=== PATIENT | male | born 1935 | race Caucasian/White ===

== ENCOUNTER 2016-03-14 08:40 | Outpatient (CLI) | payer MEDICARE | END 2016-03-14 08:41 | disposition home or self-care (01) | DX: D70.9 Neutropenia, unspecified (principal); R80.9 Proteinuria, unspecified ==

== ENCOUNTER 2016-04-03 15:22 | Outpatient (CLI) | payer MEDICARE | END 2016-04-03 15:23 | disposition home or self-care (01) | DX: E83.30 Disorder of phosphorus metabolism, unspecified (principal); N25.81 Secondary hyperparathyroidism of renal origin ==

== ENCOUNTER 2016-04-09 15:56 | Outpatient (CLI) | payer MEDICARE | END 2016-04-09 15:57 | disposition home or self-care (01) | DX: N17.9 Acute kidney failure, unspecified (principal) ==

== ENCOUNTER 2016-04-26 15:26 | Outpatient (CLI) | payer MEDICARE | END 2016-04-26 15:27 | disposition home or self-care (01) | DX: E11.29 Type 2 diabetes mellitus with other diabetic kidney complication (principal); I50.9 Heart failure, unspecified; N28.9 Disorder of kidney and ureter, unspecified ==

== ENCOUNTER 2016-06-28 19:23 | Outpatient (CLI) | payer MEDICARE, OTHER | END 2016-06-28 19:24 | disposition home or self-care (01) | DX: R07.89 Other chest pain (principal); I50.9 Heart failure, unspecified; N28.9 Disorder of kidney and ureter, unspecified; I10 Essential (primary) hypertension; E11.29 Type 2 diabetes mellitus with other diabetic kidney complication ==

== ENCOUNTER 2016-09-04 07:32 | Outpatient (CLI) | payer MEDICARE ==
[2016-09-04 14:00] LABS: BASOPHILS % (AUTO) 0.4 %; EOSINOPHILS # (AUTO) 0.2 10^3/uL (0.0-0.7); EOSINOPHILS % (AUTO) 3.1 %; HCT - HEMATOCRIT 39.2 % (42.0-52.0); HGB - HEMOGLOBIN 12.7 g/dL (14.0-18.0); LYMPHOCYTES # (AUTO) 0.6 10^3/uL (1.5-3.5); LYMPHOCYTES % (AUTO) 8.9 %; MEAN CORPUSCULAR HEMOGLOBIN 30.3 pg (27.0-31.0); MEAN CORPUSCULAR HGB CONC 32.4 g/dL (32.0-36.0); MEAN CORPUSCULAR VOLUME 93.6 fL (80.0-94.0); MEAN PLATELET VOLUME 7.8 fL (7.4-11.4); MONOCYTES # (AUTO) 0.5 10^3/uL (0.0-1.0); MONOCYTES % (AUTO) 7.4 %; NEUTROPHILS # (AUTO) 5.2 10^3/uL (1.5-6.6); NEUTROPHILS % (AUTO) 80.2 %; NUCLEATED RED BLOOD CELLS AUTO 0.2 /100WBC; RED BLOOD COUNT 4.19 10^6/uL (4.70-6.10); RED CELL DISTRIBUTION WIDTH 15.9 % (12.0-15.0); UNCORRECTED WHITE BLOOD COUNT 6.5 x10^3/uL; WHITE BLOOD COUNT 6.5 x10^3/uL (4.8-10.8)
[2016-09-04 14:19] LABS: HEMOGLOBIN A1C 0.77 g/dL
[2016-09-04 14:30] LABS: ALBUMIN/GLOBULIN RATIO 1.3 (1.0-2.2); BILIRUBIN,TOTAL 0.8 mg/dL (0.2-1.0); CALCIUM 8.8 mg/dL (8.5-10.3); CREATININE 2.1 mg/dL (0.6-1.2); POTASSIUM 4.3 mmol/L (3.5-5.0)
== END 2016-09-04 07:33 | disposition home or self-care (01) ==
LOC: LAB.WCP 07:32
PROVIDERS: ATTEND Family Medicine
DX: I25.10 Atherosclerotic heart disease of native coronary artery without angina pectoris (principal); I50.9 Heart failure, unspecified; E11.29 Type 2 diabetes mellitus with other diabetic kidney complication; N18.6 End stage renal disease
CPT/HCPCS: 36415; 80053; 83036; 85025

== ENCOUNTER 2016-11-07 13:10 | Outpatient (CLI) | payer MEDICARE ==
[2016-11-07 13:26] LABS: HEMOGLOBIN A1C 0.95 g/dL
[2016-11-07 13:28] LABS: CREATININE 2.2 mg/dL (0.6-1.2)
[2016-11-07 13:31] LABS: POTASSIUM 3.8 mmol/L (3.5-5.0)
[2016-11-07 13:40] LABS: CALCIUM 8.8 mg/dL (8.5-10.3)
== END 2016-11-07 13:11 | disposition home or self-care (01) ==
LOC: LAB.WCP 13:10
PROVIDERS: ATTEND Family Medicine
DX: I25.10 Atherosclerotic heart disease of native coronary artery without angina pectoris (principal); I50.9 Heart failure, unspecified; E11.29 Type 2 diabetes mellitus with other diabetic kidney complication; N18.6 End stage renal disease; I12.9 Hypertensive chronic kidney disease with stage 1 through stage 4 chronic kidney disease, or unspecified chronic kidney disease
CPT/HCPCS: 36415; 80048; 83036

== ENCOUNTER 2017-02-18 20:37 | Outpatient (CLI) | payer MEDICARE | END 2017-02-18 20:38 | disposition EMS.NT | LOC: EMS 20:37 | PROVIDERS: ATTEND Surgery | DX: R41.0 Disorientation, unspecified (principal); R73.09 Other abnormal glucose ==

== ENCOUNTER 2017-03-15 10:24 | Outpatient (CLI) | payer MEDICARE | END 2017-03-15 10:25 | disposition home or self-care (01) | LOC: LAB.WCP 10:24 | PROVIDERS: ATTEND Physician Assistant Medical | DX: R32 Unspecified urinary incontinence (principal) | CPT/HCPCS: 87086 ==

== ENCOUNTER 2017-03-26 04:35 | Outpatient (CLI) | payer MEDICARE | END 2017-03-26 04:36 | disposition short-term general hospital (02) | LOC: EMS 04:35 | PROVIDERS: ATTEND Surgery | DX: R55 Syncope and collapse (principal); R53.1 Weakness; R50.9 Fever, unspecified | CPT/HCPCS: A0425; A0427 ==

== ENCOUNTER 2017-04-06 10:10 | Outpatient (CLI) | payer MEDICARE | END 2017-04-06 10:11 | disposition short-term general hospital (02) | LOC: EMS 10:10 | PROVIDERS: ATTEND Surgery | DX: R40.1 Stupor (principal) | CPT/HCPCS: A0425; A0427 ==

== ENCOUNTER 2017-05-26 12:57 | Outpatient (CLI) | payer MEDICARE | END 2017-05-26 12:58 | disposition short-term general hospital (02) | LOC: EMS 12:57 | PROVIDERS: ATTEND Surgery | DX: S01.01XA Laceration without foreign body of scalp, initial encounter (principal); R41.82 Altered mental status, unspecified; W19.XXXA Unspecified fall, initial encounter; Y92.009 Unspecified place in unspecified non-institutional (private) residence as the place of occurrence of the external cause | CPT/HCPCS: A0425; A0427 ==

== ENCOUNTER 2017-08-13 08:00 | Outpatient (CLI) | payer MEDICARE ==
[2017-08-13 12:39] LABS: BASOPHILS % (AUTO) 0.3 %; EOSINOPHILS # (AUTO) 0.3 10^3/uL (0.0-0.7); EOSINOPHILS % (AUTO) 5.5 %; HGB - HEMOGLOBIN 11.4 g/dL (14.0-18.0); LYMPHOCYTES # (AUTO) 0.6 10^3/uL (1.5-3.5); LYMPHOCYTES % (AUTO) 9.7 %; MEAN CORPUSCULAR HEMOGLOBIN 32.5 pg (27.0-31.0); MEAN CORPUSCULAR HGB CONC 33.3 g/dL (32.0-36.0); MEAN CORPUSCULAR VOLUME 97.7 fL (80.0-94.0); MEAN PLATELET VOLUME 7.1 fL (7.4-11.4); MONOCYTES # (AUTO) 0.4 10^3/uL (0.0-1.0); MONOCYTES % (AUTO) 6.8 %; NEUTROPHILS # (AUTO) 4.9 10^3/uL (1.5-6.6); NEUTROPHILS % (AUTO) 77.7 %; PLT - PLATELET COUNT 206 10^3/uL (130-450); RED CELL DISTRIBUTION WIDTH 15.3 % (12.0-15.0); WHITE BLOOD COUNT 6.3 x10^3/uL (4.8-10.8)
[2017-08-13 12:50] LABS: ALBUMIN 3.7 g/dL (3.2-5.5); ALBUMIN/GLOBULIN RATIO 1.1 (1.0-2.2); BILIRUBIN,TOTAL 0.7 mg/dL (0.2-1.0); CALCIUM 8.4 mg/dL (8.5-10.3); CREATININE 2.6 mg/dL (0.6-1.2)
[2017-08-13 12:53] LABS: HB2 TOTAL 12.6 g/dL; HEMOGLOBIN A1C 0.89 g/dL; HEMOGLOBIN A1C % 8.6 % (4.6-6.2)
== END 2017-08-13 08:01 | disposition home or self-care (01) ==
LOC: LAB.WCP 08:00
PROVIDERS: ATTEND Family Medicine
DX: I13.2 Hypertensive heart and chronic kidney disease with heart failure and with stage 5 chronic kidney disease, or end stage renal disease (principal); E11.22 Type 2 diabetes mellitus with diabetic chronic kidney disease; N18.6 End stage renal disease; I50.9 Heart failure, unspecified; I25.10 Atherosclerotic heart disease of native coronary artery without angina pectoris
CPT/HCPCS: 36415; 80053; 83036; 85025

== ENCOUNTER 2017-09-24 10:41 | Outpatient (CLI) | payer MEDICARE ==
[2017-09-24 20:06] LABS: CALCIUM 8.9 mg/dL (8.5-10.3); CREATININE 2.6 mg/dL (0.6-1.2)
== END 2017-09-24 10:42 | disposition home or self-care (01) ==
LOC: LAB.WCP 10:41
PROVIDERS: ATTEND Family Medicine
DX: I95.9 Hypotension, unspecified (principal); I25.10 Atherosclerotic heart disease of native coronary artery without angina pectoris; I50.9 Heart failure, unspecified; N18.6 End stage renal disease
CPT/HCPCS: 36415; 80048

== ENCOUNTER 2017-09-25 10:30 | Outpatient (CLI) | payer MEDICARE ==
--- NOTE | 2017-09-25 17:35 | CONSULTATION NOTE ---
Palliative Care Consultation - Referral Referring Provider: Dr. Landon Jessica Time of Visit: [id number] Referral setting: Home (It is a taxing considerable effort for the patient to leave the home secondary to lower extremity weakness and fatigue and breathlessness) Referral Reason: CHF/Goals of Care - Information Sources Records reviewed: Previous records reviewed History/Review of Systems obtained from: Patient, Family (met with Marleni and daughter Sushma) Exam limitations: No limitations - History of Present Illness Brief History of Present Illness: This is an 81-year-old gentleman with known severe cardiomyopathy, CHF with systolic dysfunction,pulmonary hypertension, cor pulmonale, 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 Patient had 2 stents placed for CAD in 2016. His last known ejection fraction [facility] in February 2017 was 37%. Patient has been declining over the last several months, with increasing falls, hypoglycemic episodes, and was sent to [facility] on 05/27 for subdural hematoma. At that point in time he was discontinued off of his Plavix. Shortly after on 06/01 2 06/03 he was hospitalized at [facility] for healthcare associated pneumonia. Patient had been independently managing his medications and blood sugars up to a few weeks ago when now and daughter set up medications. He often refuses or skips medications He is not on long-acting insulin, is managing his own blood sugars, though it is unclear if he is doing this correctly given his episodes of confusion. He tracks on calendar BS but not amount he is taking. He does have a fluctuating status, he has decreased his intake he has poor appetite he had been able to ambulate short distances even out to the mailbox a few weeks ago, this is become more difficult related to activity intolerance, LE weakness, and increasing dyspnea. Over the last week he has been mostly in the chair, needing increased assistance and cueing during times of confusion. He is now having periods of incontinence this is related to urgency, but also unawareness at times. This culminated 09/19 with home visit by Dr. Jessica, with medication adjustments of carvedilol/torsemide as patient refusing hospitalization and could not get out secondary to weakness. Patient has diuresed 4-5 pounds, with improvement of LE edema and breathlessness but 09/24 BUN up to 81; cret 2.6; gfr 24; glucose 289. Last night patient needing assistance with bed mobility, stressed with patients ongoing decline, he often will not call/ask for help. Patient appears is quite frail, a somewhat lethargic when first awakening, but did participate in the interview and was able to engage and though STM issues was not confused. He is quite tearful, when asked what he thinks is going on, he feels like he is dying. He just wants to make it to 2 weeks to his birthday. He denies respiratory distress, but baseline respiratory rate is about 22, with ambulation assistance of respiratory effort is quite noticeable with a respiratory rate about 28. He does not desaturate, but he does get quite tachy at about 110.He reports he has no appetite, denies any nausea or GERD symptoms. Patient does not present with awareness regarding episodic confusion, does report he has poor balance, and some tremors. Medical/Surgical History - Past Medical History Cardiovascular: reports: Congestive heart failure, Hypertension, High cholesterol, Coronary artery disease, Peripheral Vascular Disease, Deep vein thrombosis (left lower 03/2017), Arrhythmia (av block), Valve disorder Respiratory: reports: Shortness of breath, Sleep apnea (not on CPAP) Neuro: Tremors Neuro: reports: Other (subdural hematoma 05/27/2017) Endocrine/Autoimmune: reports: Type 2 diabetes : reports: Benign prostate hypertrophy, Renal insuffiency (Stage IV), Other ( gout) HEENT: reports: Chronic vision loss, Chronic hearing loss Psych: reports: Depression Musculoskeletal: reports: Chronic back pain Derm: reports: Other (recent severe skin tear right arm) MRSA Hx?: No - Past Surgical History Cardiovascular: reports: Coronary stent (x2), Pacemaker (2 years ago; pacemaker dependent), Fempop bypass, Other (TAVR) - Substance History Use: Uses substance without health or social issues: Tobacco (hx) Social History - Living Situation Living arrangement: At home Living Situation: With spouse/s.o. Support System: Daughter Sushma and her have been very involved in care, she lives 5 minutes away. Son in [place], and daughter in [facility]. and patient for 60 years, [place]. Family History - Family History Family History: Mother: , Hypertension, Father: , CAD, Hypertension Medications/Allergies - Medications Home Medications: Ambulatory Orders Medication Instructions Recorded Confirmed Allopurinol 100 mg PO DAILY 09/26/17 09/26/17 Aspirin [Adult Aspirin] 81 mg PO DAILY 09/26/17 09/26/17 Carvedilol 6.25 mg PO BID 09/26/17 09/26/17 Insulin Lispro [Humalog Kwikpen 8 - 12 units SUBQ TID 09/26/17 09/26/17 U-100] Isosorbide Mononitrate [Isosorbide 60 mg PO DAILY 09/26/17 09/26/17 Mononitrate ER] Nitroglycerin [Nitrostat] 0.4 mg SL Q5MIN PRN 09/26/17 09/26/17 Potassium Chloride 10 meq PO DAILY 09/26/17 09/26/17 Tamsulosin [Flomax] 0.4 mg PO DAILY 09/26/17 09/26/17 Torsemide 20 mg PO . BID QOD 09/26/17 09/26/17 - Allergies Allergies/Adverse Reactions: Allergies Allergy/AdvReac Type Severity Reaction Status Date / Time No Known Drug Allergies Allergy Verified 09/26/17 05:56 Review of Systems - Constitutional Constitutional: reports: Fatigue, Weakness, Poor appetite, Weight loss (166.8; 175 8/3 md visit; 200 about 8 months ago) - Eyes Eyes: reports: Vision loss, Corrective lenses - Ears, Nose & Throat Ears, Nose & Throat: reports: Hearing loss, Hearing aids, Dry mouth - Cardiovascular Cardiovascular: reports: Edema, Exertional dyspnea, Decr. exercise tolerance. denies: Chest pain - Respiratory Respiratory: reports: SOB at rest, SOB with exertion - Gastrointestinal Gastrointestinal: reports: Poor appetite, Early satiety. denies: Constipation, Nausea, Reflux/heartburn - Genitourinary Genitourinary: reports: Frequency, Urgency, Incontinence, Nocturia, Sexual dysfunction - Musculoskeletal Musculoskeletal: reports: Back pain, Stiffness, Limited range of motion, Muscle weakness, Assistive devices (uses 4WW) - Integumentary Integumentary: reports: Dryness, Other (healing skin tear right arm) - Neurological Neurological: reports: General weakness, Dizziness, Memory problems, Incoordination - Psychiatric Psychiatric: reports: Depression, Anxiety - Endocrine Endocrine: reports: Diabetes type 2 (poorly controlled; had hypoglycemic episodes with falls; using only humalog; last Aic 8.6;patient has been doing independently concern for accuracy) - Hematologic/Lymphatic Hematologic/Lymphatic: reports: Anemia (08/13 hgb 11.4), Blood clots (DVT 03/31 LLE residual swelling), Recurrent infections (hospitalized for HAP 06/01-06/03) - All Other Systems All Other Systems: reports: Reviewed and negative Physical Exam - Vital Signs Temperature: 98.2 C Pulse Rate: 64 Respiratory Rate: 22 O2 Saturation: 97 (ra @ rest) Blood Pressure: 132/54 - Physical Exam General Appearance: positive: No acute distress, Other (fatigued) Eyes Bilateral: positive: Normal inspection ENT: positive: No signs of dehydration Neck: positive: No JVD, Trachea midline Cardiovascular: positive: Regular rate & rhythm Respiratory: positive: Rales (crackles right lower lobe). negative: Wheezes Abdomen: positive: Non-tender, Soft, Nml bowel sounds Skin: positive: Pallor, Dryness, Bruising (upper extremities), Wound (right elbow/arm laceration scabbed but no s/s infection) Extremities: positive: Pedal edema (1+ up to mid calf; left greater than right; no taut; family/patient report "skinny" for him) Neurologic/Psychiatric: positive: Oriented x3, Weakness, Other (tearful through visit) Palliative Care - POLST Patient has POLST: Yes POLST Status: DNR, Comfort Measures (updated form) Pain: Pain unchanged, Location (mild back pain) Tiredness/Fatigue: Severe (7-10) Drowsiness/Sedation: Moderate (4-6) Nausea: None Depression: Mild (1-3) Anxiety: Moderate (4-6) Anorexia: Moderate (4-6) Sleep: Variable sleep pattern (up frequently to void at night) Constipation: No Feelings of wellbeing/Perceived Quality of Life: Poor, Worsening Performance Status: Patient has a had a slow functional decline over this last year, most acutely over the last few weeks. This is been fluctuating in status sometimes he is able to ambulate short distances to the bathroom into the house. Other times he is quite weak and needs contact assist and/or rolled on his walker. is assisting him with most ADLs, patient can feed himself, but does spend most of the time sleeping in the recliner. 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 Since his pacemaker placement he has had multiple complications and surgeries, and since his fall and May with a subdural hematoma, he has continued to have less and less energy, fluctuating days or he is unable to participate in others a sleeping. He has been reportedly not communicating about how things are going. The perception is he has quite a bit of pride, the herself does not like the word hospice, she does not want to lose some". Much time was spent in discussing the philosophy of hospice which is living until he dies. Neither one perceive that he would be alive 6 months from now. We did discuss given the fluctuating status and their ongoing concern the role of hospice would play. Met with patient, patient does perceive he is doing poorly and dying, he just wants to make it 2 weeks to his birthday. We did discussed what is most important to him now which is spending time with family. He does understand he is seriously ill though cannot really reflect back to me exactly what is going on. We discussed his heart and kidneys and the difficult balance to try and work this out, but he recognizes things have gotten harder over the last few weeks to months. Patient quite tearful through conversation, we discussed goals of care to spending time with family, not going to the hospital, patient denies he is fearful of dying. He is unable to expand on his feelings around this, but was willing to acknowledge this is a very tender time. We did discuss in the context of support for both he and his , to make it easier and everyone with a hoping for the best for extended period of time but also being prepared and have someone that they might contact if they are in distress. We did update the [facility], patient signed and family all in agreement of goals. Results - Lab Results Lab results reviewed: Yes Lab and Imaging Results: Patient had labs done yesterday his BUN was 81; creatinine 2.6; potassium 4.2; sodium 138; and glucose 289. His A1c on 08 13 was 8.6% which averages to 200. Impression and Recommendations - Palliative Care Impression: This is an 81-year-old gentleman who presents with severe ischemic cardiomyopathy, known congestive heart failure with diastolic dysfunction, mitral regurgitation status post TVA R, pulmonary hypertension, type 2 diabetes , hypertension, peripheral vascular disease, chronic kidney disease stage IV. In the context is at the his multiple comorbidities and his most recent fall in May, he has had ongoing decline both functional and cognitive. Patient's goals are not to be rehospitalized, focus on comfort, given his fragile status will go ahead and transition him to hospice for better support. Recommendations/Counseling Done: 1. Diabetes type 2. Patient is on Humalog sliding scale with meals, given patient's confusion concern about patient's compliance and appropriate measurement. to assist in record for the next few days to get a sense of his blood sugar management. does not had to do injection, does assist patient, patient though direct sliding scale. 2. Congestive heart failure. Patiently recent med medication changes. Had consulted with PCP prior to going out, had agreed the patient was "dry" to change his torsemide based on his labs to every other day. Patient's weight down 4-5 pounds as best I can tell, decreased peripheral edema, Does have crackles in his right lower lobe. Daughter and have set [facility] to oversee his medications, concern about medication adherence. The sometimes patient does choose not to take medications. They are starting to log blood pressures, O2 sats, and medication compliance. 3. Generalized muscle weakness. This does appear to be fluctuating in status, at times he is quite immobilized and others able to ambulate with contact assist and supervision. This is quite a decline over the last several weeks. Will have hospice evaluate equipment needs, currently have a walker, but may benefit from a hospital bed for ease of transfers and management of his incontinence. 4. Urinary incontinence. Patient is wearing depends, does have some urgency with diuretic use, denies dysuria. Has been difficult has has little insight about his extent of incontinence, often soaks the bed. Does have urinal for nighttime use, but appears confusion worse in evenings/nights, tries to listen for patient to assist. She is hard of hearing. Counseling and suggestion of using baby monitor to be able to hear him, she is hard of hearing and it is difficult for her to sleep with hearing aids in. 5. Advanced care planning. Counseling provided for and daughter regarding hospice services, later support, given patient's decline and goals of care would seem like a good fit. After education does agree and allows me to talk to patient about this. Counseling for patient's goals of care, his biggest goal is to make it to his birthday libertarian in 2 weeks, is aware of his ongoing decline. He is quite tearful through the conversation, [facility] was updated to reflect goals of care. Contact to the hospice medical record transcriber Dr. De La Cruz, they would like to have his attending, they will accept him for admission. Time Spent: 75 minutes with greater than 50% of this done in counseling regarding goals of care, management of patient's symptoms, anticipatory guidance and coordination of care with PCP and hospice team
== END 2017-09-25 10:31 | disposition home or self-care (01) ==
LOC: PC 10:30
PROVIDERS: ATTEND Nurse Practitioner Adult Health
DX: Z51.5 Encounter for palliative care (principal); E11.22 Type 2 diabetes mellitus with diabetic chronic kidney disease; I13.0 Hypertensive heart and chronic kidney disease with heart failure and stage 1 through stage 4 chronic kidney disease, or unspecified chronic kidney disease; N18.4 Chronic kidney disease, stage 4 (severe); I50.20 Unspecified systolic (congestive) heart failure; Z79.4 Long term (current) use of insulin; M62.81 Muscle weakness (generalized); R32 Unspecified urinary incontinence; Z79.82 Long term (current) use of aspirin; Z95.0 Presence of cardiac pacemaker; Z95.5 Presence of coronary angioplasty implant and graft; R06.00 Dyspnea, unspecified; Z87.891 Personal history of nicotine dependence; F32.9 Major depressive disorder, single episode, unspecified; F41.9 Anxiety disorder, unspecified; Z66 Do not resuscitate
CPT/HCPCS: 99349

== ENCOUNTER 2017-09-26 08:15 | Outpatient (CLI) | payer MEDICARE ==
--- NOTE | 2017-09-26 14:31 | CONSULTATION NOTE ---
Palliative Care Follow Up - Referral Referring Provider: Dr. Landon Jessica Time of Visit: [id number] Referral setting: Home (It is a taxing considerable effort for the patient leave the home secondary confusion and lower extremity weakness.) Referral Reason: Confusion/CHF/CKD - Information Sources Records reviewed: Previous records reviewed History/Review of Systems obtained from: Patient, Family (Marleni and daugther Sushma) Exam limitations: Clinical condition (patient with STM issues; recognizes [employer] but does not recall issues of last night and this AM; able to engage in conversation) - History of Present Illness Update Brief HPI Update: Please see HPI from visit yesterday, for extended history. I did get a call from the daughter somewhat panicked this a.m., via the hospice on-call nurse. Reports patient is difficult to arouse, has had a difficult last 12-15 hrs. He was very exhausted after our visit, slept through most of the afternoon, they did awaken him and make him eat. His blood sugar at that point in time was 397, they are quite fearful of hypoglycemic episodes so gave him 4 units Humulog. Did ask why was on the phone to have them check it again, it was 381 that gave 4 units as instructed. She is also concerned Riri as she had noted that he was having long periods of apnea prior to being awakened, that he had Pantene, and though it been significantly incontinent and not hit the urinal but with a little bit a urine. Reports he is quite shaky and not able to walk last night and was mildly confused. I find him a little bit more clear, he does have no recall of last night or this morning, though does seem to be able to participate in the conversation. He denies significant confusion, though certainly has poor recall. His blood sugar was 521, during our visit he had to get up urgently twice, given his elevated blood sugars, this is not his norm, will go ahead and get a urine specimen for suspected UTI. Had spoken with hospice regarding more urgent visit , family is feeling quite overwhelmed, when talking on the phone did not want to call 911 though patient was somewhat distressed. Does appear they are going to need some support and education to be able to manage his fluctuating status. Social History - Living Situation Living arrangement: At home Living Situation: With spouse/s.o. Support System: Daughter Sushma and JED Kraig came over last night because patient so weak and unable to get to bed; Both are present this morning patient had been incontinent and confused, difficult to arouse this am Medications/Allergies - Medications Home Medications: Ambulatory Orders Medication Instructions Recorded Confirmed Allopurinol 100 mg PO DAILY 09/26/17 09/26/17 Aspirin [Adult Aspirin] 81 mg PO DAILY 09/26/17 09/26/17 Carvedilol 6.25 mg PO BID 09/26/17 09/26/17 Insulin Lispro [Humalog Kwikpen 8 - 12 units SUBQ TID 09/26/17 09/26/17 U-100] Isosorbide Mononitrate [Isosorbide 60 mg PO DAILY 09/26/17 09/26/17 Mononitrate ER] Nitroglycerin [Nitrostat] 0.4 mg SL Q5MIN PRN 09/26/17 09/26/17 Potassium Chloride 10 meq PO DAILY 09/26/17 09/26/17 Tamsulosin [Flomax] 0.4 mg PO DAILY 09/26/17 09/26/17 Torsemide 20 mg PO . BID QOD 09/26/17 09/26/17 - Allergies Allergies/Adverse Reactions: Allergies Allergy/AdvReac Type Severity Reaction Status Date / Time No Known Drug Allergies Allergy Verified 09/26/17 05:56 Review of Systems - Constitutional Constitutional: reports: Weakness - Eyes Eyes: reports: Vision loss - Ears, Nose & Throat Ears, Nose & Throat: reports: Hearing loss, Hearing aids, Dry mouth - Cardiovascular Cardiovascular: reports: Exertional dyspnea, Decr. exercise tolerance. denies: Chest pain - Respiratory Respiratory: reports: SOB with exertion - Gastrointestinal Gastrointestinal: reports: Poor appetite, Early satiety. denies: Constipation ( bowels moved during visit) - Genitourinary Genitourinary: reports: Frequency, Urgency, Incontinence - Musculoskeletal Musculoskeletal: reports: Back pain, Stiffness, Limited range of motion, Muscle weakness, Assistive devices (using cane) - Integumentary Integumentary: reports: Dryness, Other (right elbow wound) - Neurological Neurological: reports: General weakness, Memory problems - Endocrine Endocrine: reports: Diabetes type 2 (patient's blood sugar last night 397 at bed time; given 4 units and only ate a few bites; This am when asked to check 381-gave 4 units with breakfast and ate fairly well; now at visit 521 given 4 units) - Hematologic/Lymphatic Hematologic/Lymphatic: reports: Anemia, Recurrent infections (suspect UTI) - All Other Systems All Other Systems: reports: Reviewed and negative Physical Exam - Vital Signs Temperature: 96.7 C Pulse Rate: 60 Respiratory Rate: 22 (with ambulation 26) O2 Saturation: 97 (ra @ rest) Blood Pressure: 122/52 - Physical Exam General Appearance: positive: Mild distress Eyes Bilateral: positive: Normal inspection ENT: positive: No signs of dehydration Neck: positive: No JVD, Trachea midline Cardiovascular: positive: Regular rate & rhythm Respiratory: positive: Diminished in bases. negative: Wheezes, Rales, Rhonchi Abdomen: positive: Non-tender, Soft, Nml bowel sounds Skin: positive: Pallor, Dryness, Bruising, Wound (right skin wound without s/s infection) Extremities: positive: Pedal edema (trace to 1+ pedal edema up to mid calf) Neurologic/Psychiatric: positive: Disoriented to time, Weakness, Other (slower to respond; appears easily confused; no recall of events relayed) Palliative Care - POLST Patient has POLST: Yes POLST Status: DNR, Comfort Measures Pain: Pain unchanged Tiredness/Fatigue: Moderate (4-6) Drowsiness/Sedation: Moderate (4-6), Comment (slept most of afternoon after [employer]IC[employer] visit and short visit with relatives yesterday) Nausea: None Depression: Mild (1-3) Anxiety: Mild (1-3) Dyspnea: Moderate (4-6) Anorexia: Moderate (4-6) Sleep: Other (slept well through last night) Constipation: No Performance Status: Patient was very weak last night, needed son-in-law to come system from recliner to bed, used rolling walker. Again this a.m. to get up. After taking insulin and having breakfast, he is feeling a little bit stronger. His gait is quite shuffled and using cane. He does have difficulty getting from sitting to standing, is quite breathless with activity. Did discuss where to put a hospital bed, decision was to make it in the bedroom, they can use a wheelchair to bring him out to his recliner. - Palliative Care Discussion: Family had not wanted to call 911 despite urgent concerns this a.m., reviewed hospice be able to provide support and direction as well. Reviewed goals are still not to consider hospitalization. Hospice is scheduled come out later today, report given. Equipment has been ordered of oxygen, hospital bed, wheelchair, commode, and shower chair. Discussion how best to put this together to support patient as far as comfort but not to overwhelm him with too may changes. Reviewed room set up and recommendations. Results - Lab Results Lab results reviewed: Yes Lab and Imaging Results: Addendum: Urine collected at visit. UA shows cloudy, with moderate esterase, high protein 700, large occult blood, indicated for microscopic and urine culture, with greater than 25 WBCs and 6-10 RBCs. Impression and Recommendations - Palliative Care Impression: This is an 81-year-old gentleman who has severe ischemic cardiomyopathy, known congestive heart failure with diastolic dysfunction, pulmonary hypertension, and now with hyperglycemia with his type 2 diabetes. Given patient's underlying symptoms of confusion, weakness, and elevated blood sugars and suspect for infection. Palliative care to handed off to hospice admit later today. Recommendations/Counseling Done: 1. Diabetes, poorly controlled. They do have a sliding scale, will continue to monitor and follow, may need to be readjusted given most likely has a UTI. Daughter and to track blood sugars to assist with proper management. Did talk to psychiatric tech, as she reports with his poor kidney function, the short acting Humalog is probably the most safe thing also with a history of hypoglycemia. If patient does have UTI, most likely underlying cause of elevated blood sugars. Will continue to monitor, as Lantus may put him at high risk for hypoglycemic episode but would probably even out Bloodsugars if needed 2.Confusion. Patient is somewhat improved on visit, but history reveals patient with severe confusion and lethargy. UA was taken, it is cloudy in nature suspect UTI given patient's symptoms. Addendum patient's urine is positive, given his symptomology will go ahead and treat. Renally dosed Bactrim at 400/800 mg 1 tab twice daily 5 days. Patient has recently been on Keflex for his right arm wound, had diarrhea and dizziness and discontinued that. Time Spent: 45 minutes with greater than 50% of this done in counseling regarding signs and symptoms of infection, monitoring blood sugars more clearly, and handed off to hospice with report and I am ordering of equipment.
== END 2017-09-26 08:16 | disposition home or self-care (01) ==
LOC: PC 08:15
PROVIDERS: ATTEND Nurse Practitioner Adult Health
DX: Z51.5 Encounter for palliative care (principal); E11.22 Type 2 diabetes mellitus with diabetic chronic kidney disease; E11.65 Type 2 diabetes mellitus with hyperglycemia; N18.9 Chronic kidney disease, unspecified; R41.0 Disorientation, unspecified; Z79.82 Long term (current) use of aspirin; Z79.4 Long term (current) use of insulin; R06.09 Other forms of dyspnea; M62.81 Muscle weakness (generalized); I25.5 Ischemic cardiomyopathy; I50.30 Unspecified diastolic (congestive) heart failure; Z66 Do not resuscitate
CPT/HCPCS: 99349

== ENCOUNTER 2017-09-26 08:45 | Outpatient (CLI) | payer MEDICARE ==
[2017-09-26 10:49] LABS: BILIRUBIN,URINE NEGATIVE (NEGATIVE); GLUCOSE, URINE (UA) >=1000 mg/dL (NEGATIVE); KETONES,URINE (UA) NEGATIVE (NEGATIVE); LEUKOCYTE ESTERASE, URINE MODERATE (NEGATIVE); NITRITE,URINE NEGATIVE (NEGATIVE); OCCULT BLOOD,URINE LARGE (NEGATIVE); PROTEIN,URINE 100 mg/dL (NEGATIVE); UROBILINOGEN,URINE 0.2 (NORMAL) E.U./dL (NORMAL)
[2017-09-26 10:51] LABS: CLARITY,URINE CLOUDY (CLEAR)
[2017-09-26 11:03] LABS: BACTERIA,URINE Moderate /HPF (None Seen); SQUAMOUS EPITHELIAL CELL,UR NONE SEEN (<= Few)
== END 2017-09-26 08:46 | disposition home or self-care (01) ==
LOC: LAB.R 08:45
PROVIDERS: ATTEND Nurse Practitioner Adult Health
DX: R39.15 Urgency of urination (principal)
CPT/HCPCS: 81001; 81003; 87077; 87086; 87181